=== PATIENT | female | born 1965 | race Hispanic/Latino ===

== ENCOUNTER → 2016-12-28 | Outpatient (CLI) | payer OTHER | END | disposition home or self-care (01) | LOC: LAB.O 08:27 | PROVIDERS: ATTEND Obstetrics & Gynecology | DX: R73.09 Other abnormal glucose (principal); I10 Essential (primary) hypertension ==

== ENCOUNTER → 2018-02-04 | Outpatient (CLI) | payer OTHER ==
--- NOTE | 2018-02-04 11:40 | RAD ---
EXAM DESCRIPTION: Elbow,Right 3 Views CLINICAL HISTORY: M25.521 COMPARISON: None Available. TECHNIQUE: AP, Lateral, and Oblique FINDINGS: Three-view right elbow shows no fracture or dislocation. There is no bone lesion. Prominent spurring at the coronoid process. There are no significant arthritic changes. There is no radiopaque foreign body. IMPRESSION: Negative for fracture. Electronically signed by: Simón Guillen MD 02/04/2018 11:39 AM CDT
== END ==
LOC: RAD 08:33
PROVIDERS: ATTEND Orthopaedic Surgery
DX: M25.521 Pain in right elbow (principal)

== ENCOUNTER 2018-05-05 16:09 | Emergency (ER) | payer OTHER ==
[2018-05-05 16:28] VITALS: TEMP 97.6
[2018-05-05] MEDS ORDERED: LIDOCAINE 1% 10 ML VIAL INJ ONE (16:39)
[2018-05-05] MEDS ORDERED: SULFA/TRIMETH 800/160 (DS) TAB 1 EA TAB PO ONE (16:53)
[2018-05-05] MEDS ORDERED: NEOMYCIN-BACITRACIN-POLYMYXIN 0.9 GM UD TOP ONE (16:53)
--- NOTE | 2018-05-05 16:56 | ED.PDOC ---
History of Present Illness - General Chief Complaint: Lower Extremity Injury Stated Complaint: right great toenail partially off Time Seen by Provider: 05/05/18 16:53 Source: patient Exam Limitations: no limitations - History of Present Illness Initial Comments: the patient is a 52-year-old female presenting to the emergency room secondary to a partially a pulse first toenail on the right foot. She accidentally hung it on a piece of construction equipment. It is partially lifted up from the end. Estimated blood loss is probably 10 cc. She does appear to be neurovascularly intact. No other injury. She moves the digit well. Timing/Duration: momentarily Severity: mild Improving Factors: nothing Worsening Factors: nothing Associated Symptoms: denies symptoms Allergies/Adverse Reactions: Allergies NO KNOWN ALLERGY Allergy (Unverified 01/17/13 08:05) Home Medications: Ambulatory Orders Lisinopril 5 mg PO DAILY #30 tab 12/15/14 Metformin HCl 500 mg PO BID 05/05/18 Review of Systems - Review of Systems Constitutional: States: no symptoms reported EENTM: States: no symptoms reported Respiratory: States: no symptoms reported Cardiology: States: no symptoms reported Gastrointestinal/Abdominal: States: no symptoms reported Genitourinary: States: no symptoms reported Musculoskeletal: States: see HPI Skin: States: see HPI Neurological: States: no symptoms reported Endocrine: States: no symptoms reported All other Systems: No Change from Baseline Past Medical History (General) - Patient Medical History Hx Stroke: No Hx Cardiac Disorders: No Hx Congestive Heart Failure: No Hx Hypertension: Yes Hx Diabetes: Yes Hx MRSA: No - Vaccination History Hx Tetanus, Diphtheria Vaccination: - unknown Hx Influenza Vaccination: No - Social History Hx Tobacco Use: No - Female History Patient : No Family Medical History - Family History Mother Family History: Unknown Physical Exam - Physical Exam General Appearance: Alert, Comfortable, No apparent distress Eye Exam: bilateral normal Ears, Nose, Throat: hearing grossly normal Respiratory: no respiratory distress, no accessory muscle use Cardiovascular/Chest: normal peripheral pulses, no edema, other - regular rate Peripheral Pulses: dorsalis pedis,right: 2+, dorsalis pedis,left: 2+, posterior tibialis,right: 2+, posterior tibialis,left: 2+ Rectal Exam: deferred Extremity: normal range of motion, no pedal edema, no calf tenderness, normal capillary refill Neurologic: quarry boss II-XII nml as tested, no motor/sensory deficits, alert, normal mood/affect, oriented x 3 Skin Exam: normal color, other - first right toenail avulsion Comments: Vital Signs - 24 hr 05/05/18 16:25 Temperature 97.6 F Pulse Rate [ 86 Right Brachial] Respiratory 16 Rate Blood Pressure 161/107 [Right Arm] O2 Sat by Pulse 96 Oximetry Progress - Progress Progress: 05/05/18 16:55 the patient is a 52-year-old female presenting to the emergency room secondary to a partially avulsed right first toenail. After risks and benefits were explained the wound was cleaned and then a digital block was performed with 8 cc of 1% lidocaine without epinephrine. Nail was grasped and removed without difficulty. Silver nitrate was used for hemostasis and dressing was applied. The patient was given 1 dose of oral Bactrim. ER warnings were given. Monitor for any infection. No additional antibiotics are warranted at this time. Departure - Departure Clinical Impression: Toenail avulsion Qualifiers: Encounter type: initial encounter Qualified Code(s): S91.209A - Unspecified open wound of unspecified toe(s) with damage to nail, initial encounter Disposition: Discharge to Home or Self Care Condition: Fair Departure Forms: ED Discharge - Pt. Copy, Patient Portal Self Enrollment Instructions: Nail Avulsion (DC) Diet: regular diet Activity: increase activity as tolerated Referrals: Rio Pleitez MD [Primary Care Provider] - 1-2 Weeks Home Medications: Ambulatory Orders Lisinopril 5 mg PO DAILY #30 tab 12/15/14 Metformin HCl 500 mg PO BID 05/05/18 Additional Instructions: the patient is a 52-year-old female presenting to the emergency room secondary to a partially avulsed right first toenail. the wound was cleaned and then a digital block was performed with 8 cc of 1% lidocaine without epinephrine. Nail was grasped and removed without difficulty. Silver nitrate was used for hemostasis and dressing was applied. The patient was given 1 dose of oral Bactrim. ER warnings were given. Monitor for any infection. No additional antibiotics are warranted at this time. keep the wound dry for at least 24 hours. Triple antibiotic ointment such as Neosporin and a Band-Aid can be used after the first day.
[2018-05-05 17:12] VITALS: BP 156/97; O2SAT 97
== END 2018-05-05 17:12 | disposition home or self-care (01) ==
LOC: ER 16:09
DX: S91.201A Unspecified open wound of right great toe with damage to nail, initial encounter (principal); E11.9 Type 2 diabetes mellitus without complications; I10 Essential (primary) hypertension; Z79.899 Other long term (current) drug therapy; W22.8XXA Striking against or struck by other objects, initial encounter